=== PATIENT | female | born 1985 | race Caucasian/White ===

== ENCOUNTER 2019-01-14 11:45 | Outpatient (REF) | payer BC, SELFPAY ==
--- NOTE | 2019-01-14 09:15 | PAPFT_PTH ---
PATIENT: Miguelina Webb LOC: [facility] U#:[id number] AGE/SX: 33/F ROOM: RE01/14/[address]: Steph Chun APRN : 1985 BED: DIS: 01/14/2019 SPEC #: [id number] RECD: 01/14/19 12:55 STATUS: TIMOTHY REYES #: [id number] EMERY: 01/14/19 09:[address]: Steph Chun DEPT: [facility] Cytology RECD BY: Alysia Lauren Tissues: 1 - CX/ENDOCX FOR PAP SMEARS Procedures: PAP THIN PREP/[facility] Screening HPV DNA PROBE Comments: [id number]
== END 2019-01-14 12:05 ==
LOC: LBN 11:45
PROVIDERS: PCP Nurse Practitioner; Visit Provider Nurse Practitioner
DX: Z12.4 Encounter for screening for malignant neoplasm of cervix (principal); Z11.51 Encounter for screening for human papillomavirus (HPV)
CPT/HCPCS: 88142; 87624

== ENCOUNTER 2019-08-04 03:17 | Outpatient (CLI) | payer BC, SELFPAY ==
[2019-08-04 07:40] LABS: Abs Immature Grans 0.13 k/cumm (0.0-0.09); Absolute Basophil Count 0.02 k/cumm (0.0-0.2); Absolute Eosinophil Count 0.13 k/cumm (0.0-0.7); Absolute Lymphocyte Count 1.78 k/cumm (1.2-3.4); Absolute Monocyte Count 0.77 k/cumm (0.11-0.7); Absolute Neutrophil Count 5.57 k/cumm (1.2-6.7); Basophils % 0.2; Eosinophils % 1.5; HCT 34.4 % (36.0-46.0); HGB 11.5 g/dL (12.0-15.5); Immature Grans % 1.5 %; Lymphocytes % 21.2; Mean Corp. HGB Concentration 33.4 g/dL (32.0-36.0); Mean Corpuscular Hemoglobin 29.5 pg (27.0-33.0); Mean Corpuscular Volume 88.2 fL (80-95); Mean Platelet Volume 9.9 fL (8.0-11.0); Monocytes % 9.2; Neutrophils % 66.4; Platelet Count 210 x1000/uL (130-400); RBC Distribution Width 12.8 % (11.7-14.6)
[2019-08-04 07:47] LABS: Glucose,1 Hr (Glucola) 89 mg/dL (80-140)
== END 2019-08-04 03:37 ==
PROVIDERS: PCP Nurse Practitioner; Visit Provider Obstetrics & Gynecology
DX: Z34.80 Encounter for supervision of other normal pregnancy, unspecified trimester (principal)
CPT/HCPCS: 36415; 82950; 82947; 85025

== ENCOUNTER 2022-08-23 15:46 | Outpatient (REF) | payer BC, SELFPAY | END 2022-08-23 15:47 | disposition home or self-care (01) | LOC: LBN 15:46 | PROVIDERS: PCP Nurse Practitioner; Referring Provider Nurse Practitioner; Visit Provider Nurse Practitioner | DX: N89.8 Other specified noninflammatory disorders of vagina (principal) | CPT/HCPCS: 87480; 87510; 87660 ==

== ENCOUNTER → 2022-12-27 03:25 | Outpatient (CLI) | payer BC, SELFPAY ==
--- NOTE | 2022-12-27 08:30 | DI.MRI_ITS ---
Exam(s) MR ANGIO BRAIN WO EXAM: MR ANGIO BRAIN WO CLINICAL HISTORY: Thunderclap headache,? [id number] TECHNIQUE: Performed on 1.5 jf unit with [id number] sequence. COMPARISON: No exams were available for comparison FINDINGS: ANTERIOR CIRCULATION: Both internal carotid arteries are patent in the skull base-carotid canals as well as in the cavernou s sinuses bilaterally. The supraclinoid aspects of both internal carotid arteries are patent. No an eurysms at this level. Both A1 segments are patent as are the anterior cerebral arteries. There is no evidence of aneurysm at the level of the anterior communicating artery. Both middle cerebral arteries are patent. No significant stenosis. No aneurysms. POSTERIOR CIRCULATION: At the skull base both vertebral arteries contribute to the formation of the midline basilar artery. Basilar artery ascends with normal luminal diameter. Distally it gives off patent superior cerebell ar arteries and above this level terminates as patent bilateral posterior cerebral arteries. There i s no evidence of aneurysm of the tip of the basilar artery nor elsewhere in the [id number]. IMPRESSION: 1. Patent intracranial arteries. 2. No aneurysms evident. DATA REPOSITORY:
== END ==
PROVIDERS: PCP Nurse Practitioner; Visit Provider Family Medicine
DX: G44.53 Primary thunderclap headache (principal)
CPT/HCPCS: 70544

== ENCOUNTER 2023-01-18 19:35 | Outpatient (CLI) | payer BC, SELFPAY ==
--- NOTE | 2023-01-18 13:30 | DI.RAD_ITS ---
Exam(s) XR CHEST 2V PA LATERAL EXAM: XR CHEST 2V PA LATERAL CLINICAL HISTORY: eval left lung base; r/o PNA R05.9 COUGH Z87.01 PNEUMONIA. TECHNIQUE: 2D digital imaging was performed. COMPARISON: CR CHEST 2 VIEWS PA,LAT from 01/26/2016 FINDINGS: 2 views: Heart size is normal. The mediastinum is not widened. Lungs are clear. No infiltrates nor pleural effusions. The previously present right lower lobe findings which are evident in 2016 have not recurred. IMPRESSION: No acute pulmonary findings. DATA REPOSITORY: RADIATION DOSE DELIVERED:
== END 2023-01-18 19:55 ==
LOC: DI 19:38
PROVIDERS: PCP Nurse Practitioner; Visit Provider Student in an Organized Health Care Education/Training Program
DX: R05.9 Cough, unspecified (principal); Z87.01 Personal history of pneumonia (recurrent)
CPT/HCPCS: 71046

== ENCOUNTER 2023-01-23 10:29 | Outpatient (CLI) | payer BC, SELFPAY ==
[2023-01-23 10:56] LABS: Source Nasal/Nares
[2023-01-23 11:29] LABS: COVID-19 PCR Negative (Negative)
== END 2023-01-23 10:30 | disposition home or self-care (01) ==
LOC: LBN 10:32
PROVIDERS: PCP Nurse Practitioner; Visit Provider Family Medicine
DX: R05.9 Cough, unspecified (principal)
CPT/HCPCS: 87635

== ENCOUNTER 2023-04-18 07:39 | Outpatient (CLI) | payer BC, SELFPAY ==
[2023-04-18 07:49] LABS: Abs Immature Grans 0.01 10^3/uL (0.0-0.06); Absolute Basophil Count 0.05 10^3/uL (0.0-0.2); Absolute Eosinophil Count 0.23 10^3/uL (0.0-0.7); Absolute Lymphocyte Count 1.85 10^3/uL (1.2-3.4); Absolute Monocyte Count 0.59 10^3/uL (0.1-0.8); Absolute Neutrophil Count 1.85 10^3/uL (1.2-6.7); Basophils % 1.1; HCT 38.1 % (36.0-46.0); HGB 12.4 g/dL (11.2-15.7); Immature Grans % 0.2; Lymphocytes % 40.4; MCH 27.5 pg (27.0-33.0); MCHC 32.5 % (32.0-36.0); MCV 85 fL (80-95); MPV 10.8 fL (8.0-11.0); Monocytes % 12.9; Neutrophils % 40.4; Platelet Count 252 10^3/uL (130-400); RBC 4.51 10^6/uL (3.93-5.22); RDW 14.4 % (11.7-14.6); RDW-SD 44.4 fL; WBC 4.58 10^3/uL (4.4-10.8)
[2023-04-18 08:17] LABS: ALT 32 U/L (14-59); AST 28 U/L (15-37); Albumin 3.2 g/dL (3.4-5.0); Alkaline Phosphatase 45 U/L (46-116); Anion Gap 6.2 mmol/L (3-11); BUN 9 mg/dL (7-18); Bilirubin, Total 0.3 mg/dL (0.2-1.0); CO2 28.8 mmol/L (21.0-32.0); CREATININE 0.9 mg/dL (0.55-1.02); Calcium 8.8 mg/dL (8.5-10.1); Calculated LDL 141 mg/dL (<100); Chloride 102 mmol/L (98-107); Cholesterol 234 mg/dL (<200); Estimated GFR 84.97 (mL/min/1.73m2); Glucose 90 mg/dL (74-106); HDL Cholesterol 67 mg/dL (40-60); Sodium 137 mmol/L (136-145); TSH (W/Ref FT4) 2.72 uIU/mL (0.36-3.74); Total Protein 7.6 g/dL (6.4-8.2); Triglyceride 130 mg/dL (<150)
== END 2023-04-18 07:40 | disposition home or self-care (01) ==
LOC: LBO 07:39
PROVIDERS: PCP Nurse Practitioner; Visit Provider Nurse Practitioner
DX: F41.9 Anxiety disorder, unspecified (principal); J45.909 Unspecified asthma, uncomplicated; Z83.2 Family history of diseases of the blood and blood-forming organs and certain disorders involving the immune mechanism; Z13.220 Encounter for screening for lipoid disorders
CPT/HCPCS: 36415; 80053; 80061; 84443; 85025

== ENCOUNTER 2024-04-17 16:52 | Outpatient (CLI) | payer OTHER, SELFPAY ==
[2024-04-17 16:57] LABS: Abs Immature Grans 0.01 10^3/uL (0.0-0.06); Absolute Basophil Count 0.06 10^3/uL (0.0-0.2); Absolute Eosinophil Count 0.17 10^3/uL (0.0-0.7); Absolute Lymphocyte Count 1.91 10^3/uL (1.2-3.4); Absolute Monocyte Count 0.47 10^3/uL (0.1-0.8); Basophils % 1.1 %; HCT 36.7 % (36.0-46.0); HGB 11.5 g/dL (11.2-15.7); Immature Grans % 0.2 %; MCH 26.7 pg (27.0-33.0); MCHC 31.3 % (32.0-36.0); MCV 85 fL (80-95); MPV 11.2 fL (8.0-11.0); Monocytes % 8.4 %; Neutrophils % 53.3 %; Platelet Count 252 10^3/uL (130-400); RBC 4.31 10^6/uL (3.93-5.22); RDW 13.3 % (11.7-14.6); RDW-SD 41.7 fL; WBC 5.62 10^3/uL (4.4-10.8)
[2024-04-17 17:25] LABS: ALT 27 U/L (14-59); AST 31 U/L (15-37); Albumin 4.3 g/dL (3.4-5.0); Alkaline Phosphatase 54 U/L (46-116); Anion Gap 9.1 mmol/L (3-11); BUN 13 mg/dL (7-18); Bilirubin, Total 0.49 mg/dL (0.2-1.0); CO2 28.9 mmol/L (21.0-32.0); CREATININE 0.8 mg/dL (0.55-1.02); Calcium 9.8 mg/dL (8.5-10.1); Chloride 103 mmol/L (98-107); Estimated GFR 97.26 (mL/min/1.73m2); Glucose 94 mg/dL (74-106); Sodium 141 mmol/L (136-145); Total Protein 8.5 g/dL (6.4-8.2)
== END 2024-04-17 16:53 | disposition home or self-care (01) ==
LOC: LBO 16:52
PROVIDERS: PCP Nurse Practitioner; Visit Provider Nurse Practitioner Family
DX: R10.9 Unspecified abdominal pain (principal); R10.31 Right lower quadrant pain
CPT/HCPCS: 36415; 80053; 85025

== ENCOUNTER 2024-07-28 10:09 | Outpatient (REF) | payer OTHER, SELFPAY ==
--- NOTE | 2024-07-28 08:15 | PAPFT_PTH ---
PATIENT: Miguelina Webb LOC: [facility] U#:[id number] AGE/SX: 39/F ROOM: RE07/28/[address]: Steph Chun APRN : 1985 BED: DIS: 07/28/2024 SPEC #: [id number] RECD: 07/28/24 18:23 STATUS: TIMOTHY RETom #: [id number] EMERY: 07/28/24 08:[address]: Steph Chun DEPT: [facility] Cytology RECD BY: Alysia Lauren Tissues: 1 - CX/ENDOCX FOR PAP SMEARS Procedures: PAP THIN PREP/[facility] Screening HPV DNA PROBE Comments: [id number] (HPV 16 & 18/45)
== END 2024-07-28 10:10 | disposition home or self-care (01) ==
LOC: LBN 10:09
PROVIDERS: PCP Nurse Practitioner; Visit Provider Nurse Practitioner
DX: Z12.4 Encounter for screening for malignant neoplasm of cervix (principal)
CPT/HCPCS: 88142; 87624